=== PATIENT | male | born 1970 | race African-American/Black ===

== ENCOUNTER 2016-12-06 20:00 | Emergency (ER) | payer MEDICAID ==
[~2016-12-06] VITALS: Ht 167.6 cm; Wt 73.0 kg
[2016-12-06 20:15] VITALS: Ht 167.6 cm; Wt 73.0 kg
[2016-12-06] MEDS ORDERED: PRED20TA PO (20:47)
[2016-12-06] MEDS ORDERED: ALBU8.5H3 INH (20:47)
[2016-12-06] MEDS ORDERED: ALBU2.5V3 NEB (20:47)
[2016-12-06] MEDS ORDERED: CETI10CA PO (20:48)
--- NOTE | 2016-12-06 21:07 | ERD ---
ER Documentation Chief Complaint Date/Time DATE: 12/06/16 TIME: 21:05 Chief Complaint cough x 2 days HPI Patient is a 46-year-old male who presents to the ED with cough, wheeze, runny nose. He states that he has history of asthma and ran out of his albuterol and nebulizer treatment. He is here for refills of these medications as well as the Zyrtec and is requesting prednisone. Patient does not have shortness of breath, difficulty breathing. Patient does not have chest pain, leg pain, leg swelling. Denies recent surgeries, recent travel. Denies headache or dizziness. Also complains of a runny nose. No other complaints. ROS All systems reviewed and are negative except as per history of present illness. Medications Home Meds Active Scripts Cetirizine Hcl* (Zyrtec*) 10 Mg Capsule, 10 MG PO DAILY, #30 TAB.CHEW Prov:NOMI HOOD PA-C 12/06/16 Prednisone* (Prednisone*) 20 Mg Tab, 40 MG PO DAILY for 4 Days, TAB Prov:NOMI HOOD PA-C 12/06/16 Albuterol Sulfate* (Proair HFA*) 8.5 Gm Hfa.aer.ad, 2 PUFF INH Q4, #1 INHALER Prov:NOMI HOOD PA-C 12/06/16 Albuterol Sulfate* (Albuterol Sulfate* Neb) 0.083%-3 Ml Neb, 2.5 MG NEB Q4 Y for SHORTNESS OF BREATH, #30 EA Prov:NOMI HOOD PA-C 12/06/16 Allergies Allergies: Coded Allergies: No Known Allergy (Unverified , 12/06/16) PMhx/Soc History of Surgery: No Anesthesia Reaction: No Hx Neurological Disorder: No Hx Respiratory Disorders: No Hx Cardiac Disorders: No Hx Psychiatric Problems: Yes (Asthma) Hx Miscellaneous Medical Probl: No Hx Alcohol Use: No Hx Substance Use: Yes (Occasional marijuana use) Hx Tobacco Use: No Smoking Status: Current every day smoker FmHx Family History: No coronary disease, No diabetes, No other Physical Exam Vitals Vital Signs Date Time Temp Pulse Resp B/P Pulse Ox O2 Delivery O2 Flow Rate FiO2 12/06/16 20:15 97.8 78 20 128/72 99 Physical Exam GENERAL: Well-developed, well-nourished male. Appears in no acute distress. HEAD: Normocephalic, atraumatic. EYES: Pupils are equally reactive bilaterally. EOMs grossly intact. No conjunctival erythema. ENT: Moist mucous membranes. No uvula deviation. No kissing tonsils. No exudates. NECK: Supple. No lymphadenopathy or thyromegaly. No meningismus. negative kernig. negative brudinski. LUNG: Clear to auscultation bilaterally. No rhonchi, wheezing, rales or coarse breath sounds. HEART: Regular rate and rhythm. No murmurs, rubs or gallops. Extremities: Equal pulses bilaterally. No peripheral clubbing, cyanosis or edema. No unilateral leg swelling. Negative Homans sign NEUROLOGIC: Alert and oriented. Moving all four extremities. 5/5 strength in all extremities. Normal speech. Steady gait. SKIN: Normal color. Warm and dry. No rashes or lesions. Capillary refill < 2 seconds Procedures/MDM ER COURSE: I kept the patient and/or family informed of laboratory and diagnostic imaging results throughout the emergency room course. MEDICAL DECISION MAKING: This is a 46 year old male who presents with cough, runny nose. Vital signs were reviewed. Patient is afebrile. Patient is not hypoxic. Patient is not toxic or ill-appearing. Patient speaking in full sentences and does not show signs of respiratory distress. Patient likely has URI of viral etiology with asthma exacerbation. However patient does not have signs of respiratory distress and I do not think he needs a breathing treatment here in the ED or an x-ray or an EKG. Patient does not complain of chest pain. His lung examination is within normal limits. Low suspicion for pneumonia, PE, pneumothorax, ACS, epiglottitis, obstruction, TB, pertussis, meningitis, sepsis. PERC Criteria Assessment: Age > 50: No HR > 100: No 02 < 95%: No H/o DVT/PE: No Recent trauma/surgery: No Hemoptysis: No Exogenous Estrogen: No Unilateral Leg swelling: No Pretest probability > 15%: No [Less than 2% risk of PE. No further work up is necessary] Low suspicion for ACS , PE, AAA, dissection, DVT DISCHARGE: At this time, patient is stable for discharge and outpatient management with no new complaints during the ER course. Patient was sent home with Zyrtec, prednisone, albuterol, albuterol nebulizer. Patient will be discharged home with instructions to recheck for new or worsening symptoms such as fever, nausea , weakness, LOC and to follow up with primary care in the next 1-2 days. Patient was advised to return to the ER for any new or worsening symptoms. Plan was discussed and patient and/or family understands and agrees. Home instructions were given. Departure Diagnosis: Primary Impression: URI, acute Condition: Stable Patient Instructions: Asthma Medications Additional Instructions: Call your primary care doctor TOMORROW for an appointment during the next 1-2 days.See the doctor sooner or return here if your condition worsens before your appointment time. NOMI HOOD PA-C Dec 06, 2016 21:07
== END 2016-12-06 20:48 | disposition home or self-care (01) ==
LOC: E/R 20:00
DX: J06.9 Acute upper respiratory infection, unspecified (principal); J45.901 Unspecified asthma with (acute) exacerbation; F17.210 Nicotine dependence, cigarettes, uncomplicated
CPT/HCPCS: 99284

== ENCOUNTER 2017-12-09 22:11 | Emergency (ER) | END 2017-12-10 01:02 | disposition home or self-care (01) ==